=== PATIENT | male | born 1990 | race Caucasian/White ===

== ENCOUNTER 2020-06-20 12:16 | Emergency (ER) | payer MEDICAID ==
[~2020-06-20] VITALS: Ht 170.2 cm; Wt 74.8 kg
[2020-06-20 12:40] VITALS: BP 115/46; Ht 170.2 cm; Wt 74.8 kg
== END 2020-06-20 13:59 | disposition home or self-care (01) ==
LOC: ED 12:16
DX: S69.92XA Unspecified injury of left wrist, hand and finger(s), initial encounter (principal); W23.0XXA Caught, crushed, jammed, or pinched between moving objects, initial encounter; Y93.89 Activity, other specified; Y92.89 Other specified places as the place of occurrence of the external cause; Y99.8 Other external cause status